=== PATIENT | male | born 1995 | race Two or more races ===

== ENCOUNTER 2024-04-10 22:06 | Emergency (ER) | payer MEDICAID, SELFPAY ==
[2024-04-10 22:07] VITALS: BMI 30.1
--- NOTE | 2024-04-10 22:35 | EKG_ITS ---
[facility] Test Date: 2024-04-10 Pat Name: ALETHEA MCGOVERN Department: Room: - Gender: Male Optical Lab Technician: : 1995 Requested By: Jonas Bacon Order Number: [id number] Reading MD: Jonas Bacon Measurements Intervals [place] Rate: 91 P: 57 W[place]: 147 QRS: 36 QRSD: 87 T: 53 QT: 309 QTc: 380 Interpretive Statements SINUS RHYTHM No previous ECG available for comparison /store/S0/[id number].pdf
[2024-04-10 22:36] VITALS: BP 124/75; PULSE 96; RESP 18; TEMP 37.4; O2SAT 95
--- NOTE | 2024-04-10 22:36 | PD.EDRME ---
Rapid Medical Screening Exam RME Arrival date/time: 04/10/24 22:06 29 year old male present to Ed for c/o of tingling/numbness. I have greeted and performed a focused initial assessment of this patient. A comprehensive ED assessment and evaluation of the patient, analysis of all test results, and completion of the medical decision making process will be conducted by additional ED providers. Chief Complaint: General Adult/Misc Complain Time Seen by Provider: 04/10/24 22:10
[2024-04-10 22:59] LABS: Basophils % (Auto) 0 % (0-2.5); Eosinophils # (Auto) 0.1 Thou/mm3 (0.0-0.5); Eosinophils % (Auto) 1 % (0-10); Immature Granulocytes % (Auto) 1 % (0-0); Immature Granulocytes Auto 0.05 Thou/mm3 (0.00-0.00); Lymphocytes # (Auto) 1.6 Thou/mm3 (1.0-4.8); Lymphocytes % (Auto) 17 % (10-50); Mean Corpuscular HGB Conc 34.1 g/dl (31.0-37.0); Mean Corpuscular Hemoglobin 28.7 pg (25.0-35.0); Mean Corpuscular Volume 84 fL (80-100); Monocytes # (Auto) 0.7 Thou/mm3 (0.0-0.8); Monocytes % (Auto) 7 % (0-12); Neutrophils # (Auto) 7.1 Thou/mm3 (1.8-7.7); Neutrophils % (Auto) 74 % (37-80); Nucleated Red Blood Cell % 0 /100 WBC (0); Platelet Count 213 Thou/mm3 (140-440); RDW Standard Deviation 38.8 fL (35.1-43.9); Red Blood Count 4.88 Miln/mm3 (4.50-5.90); White Blood Count 9.6 Thou/mm3 (3.8-10.6)
[2024-04-10 23:04] LABS: Collection Type, Urine Voided; RBC,Urine 0 /hpf (0-3); WBC,Urine 0 /hpf (0-5)
[2024-04-10 23:16] LABS: Alanine Aminotransferase 42 U/L (10-49); Anion Gap 7 (7-16); Aspartate Amino Transferase 23 U/L (0-34); BUN/Creatinine Ratio 15 Ratio (12-20); Bilirubin,Total 0.3 mg/dL (0.3-1.2); Blood Urea Nitrogen 12 mg/dL (9-23); Carbon Dioxide 26.8 mMol/L (20.0-31.0); Chloride 105 mMol/L (98-107); Creatinine (Component) 0.8 mg/dL (0.6-1.3); Estimated Creatinine Clearance 160.7 mL/min (>60); Glucose 106 mg/dL (74-106); Magnesium 1.9 mg/dL (1.6-2.6); Osmolality,Calculated 277 (275-295); Sodium 139 mMol/L (136-145); Total Protein 7.5 gm/dL (5.7-8.2); Troponin I < 0.002 ng/mL (0.0-0.045); eGFR > 60 See Note
[2024-04-10 23:17] LABS: Albumin, Serum 4.8 gm/dL (3.5-5.0); Albumin/Globulin Ratio 1.8 (1.2-2.2); Alkaline Phosphatase 97 U/L (46-116); Globulin 2.7 gm/dL (2.3-3.5)
[2024-04-10 23:23] LABS: Bilirubin,Urine Negative (Negative); Blood,Urine Negative (Negative); Clarity,Urine Clear (Clear/Hazy); Color,Urine Lt-Yellow (Lt Yel-Yel); Glucose, Urine Negative (Negative); Hyaline Casts,Urine < 1 /hpf (0-1); Ketones,Urine Negative (Negative); Leukocyte Esterase,Urine Negative (Negative); Nitrite,Urine Negative (Negative); Protein,Urine 1+ (Neg - Trace); Specific Gravity,Urine 1.028 (1.001-1.035); Squamous Epithelial Cell,Urine 1 /hpf (0-5); Urobilinogen,Urine Negative mg/dL (0.0-1.0)
--- NOTE | 2024-04-11 01:26 | EDNOTE_ITS ---
<Statement entered by Deena Saab MD - 04/11/24 05:12> As co-signing physician, I was present and available for consult prn. I concur with the plan and care as documented by the midlevel provider. ED General RME/HPI General Chief complaint: General Adult/Misc Complain Stated complaint: NUMBNESS TO HANDS AND FEET Time Seen by Provider: 04/10/24 22:10 Arrival date/time: 04/10/24 22:06 29 year old male present to emergency room with c/o of bilateral hands and feet numbness today. denies any trauma or injury LOCATION: extremities SEVERITY: Symptoms are described as being severe with limitations on activities of daily living CONTEXT: The patient is unable to identify any inciting events. DURATION/TIMING: The symptoms started approximately 1 day ASSOCIATED SYMPTOMS: The patient is unable to identify any other associated symptoms. MODIFYING FACTORS: The patient is unable to identify any alleviating or aggravating symptoms. PERTINENT ROS: no fevers, no cough, no pleuritic pain, no ripping or tearing sensations, denies any lower extremity edema and no unilateral swelling, no chest pain/shortness of breath no nausea,vomiting, diarrhea, no dizziness/headache no rash no loc/syncope episode REVIEW OF SYSTEMS: See History of Present Illness - with the exception of those mentioned in the history of present illness, all other systems reviewed and reported as negative GENERAL: In general the patient is awake, interactive, in an emergency department gurney. HEAD/EYES/EARS/NOSE/THROAT: normo-cephalic, atraumatic, mucus membranes are moist, anicteric, palpebral conjunctiva is pink, trachea is midline. CARDIOVASCULAR: regular rate and regular rhythm, no murmurs, heart sounds are not distant, strong pulses in all four extremities that are equal and symmetric bilateral upper and lower extremities, normal capillary refill. CHEST/PULMONARY: normal chest rise and fall, good air movement, clear to auscultation bilaterally, normal inspiratory to expiratory ratios without evidence of respiratory distress. NECK: No midline/Paraspinal tenderness, no step off ROM/Strenght intact No Kernig and bruzinski sign. No trauma ABDOMEN: soft, not tender, no masses appreciated BACK: normal range of motion without pain. NEUROLOGICAL: cranio-facial features are symmetric, moves all four extremities equally without obvious limitations or weakness. EXTREMITY: no tenderness to palpation over the long bones or large joints of the bilateral upper and lower extremities, no joint swelling, no joint erythema, no signs of trauma, no unilateral leg swelling and no peripheral edema. SKIN: warm, dry, well-perfused, no jaundice, no rash, no telangiectasias or petechia. PSYCH: calm, cooperative, no evidence of psychosis or agitation RME / HPI RME / HPI narrative: 04/10/24 22:06 29 year old male present to Ed for c/o of tingling/numbness. I have greeted and performed a focused initial assessment of this patient. A comprehensive ED assessment and evaluation of the patient, analysis of all test results, and completion of the medical decision making process will be conducted by additional ED providers. Course Course Course Narrative: presents with sensation of tingling to hand/foot? POC glucose, cbc/cmp/trop, ekg Patient?s symptoms and work-up not consistent with a stroke and therefore they will be discharged from the ED. ?Patient has currently been stabilized in the emergency department. Patient?s symptoms not typical for other emergent causes such as dissection, infection, DKA, trauma. Patient will be discharged with strict return precautions and follow up with primary MD within 24 hours for further evaluation.?? Quality Measures none Orders Category Date Time Status EKG (ED ONLY) *Do not use* NOW Care 04/10/24 22:35 Completed EKG (ED Only) Stat Exams 04/10/24 22:35 Draft CBC Stat Lab 04/10/24 22:47 Completed CMP [Comprehensive Metabolic Panel] Stat Lab 04/10/24 22:47 Completed Mag [Magnesium] Stat Lab 04/10/24 22:47 Completed Troponin I Stat Lab 04/10/24 22:47 Completed UA [Urinalysis] Stat Lab 04/10/24 22:52 Completed Vital Signs Vital signs: Vital Signs Temperature 99.4 F 04/10/24 22:36 Pulse Rate 96 04/10/24 22:36 Respiratory Rate 18 04/10/24 22:36 Blood Pressure 124/75 04/10/24 22:36 Pulse Oximetry (%) 95 04/10/24 22:36 Oxygen Delivery Method Room Air 04/10/24 22:36 Procedures -ED EKG Interpretation #1: Date of EK04/11/24 Rate: 91 Interpretation: Reviewed by me EKG Impression: Normal sinus rhythm, No acute ST-T changes, No ectopy, No ischemic changes and Normal QRS MDM Patient data External records reviewed:: None Clinical information provided by:: patient Social determinants that could affect healthcare access:: none Patient has the following chronic illnesses:: none How is presenting disease/condition affected by chronic disease/condition?: no chronic disease Evaluation data The following diagnostics were reviewed and interpreted by me:: lab results and EKG tracing(s) Lab and/or radiology exams considered but not ordered:: none Interpretation Summary: cbc/cmp/trop: wnl ekg Medications Medications considered but not ordered:: none Medication administrations:: none Consultations Consultation(s) initiated? (list below): No Diagnosis Differential Diagnosis ED Complaint MDM: paresthesia , MO/nstemi anemia Most likely diagnosis given after review of the tests above:: pareshesia Admission Indicated Admission indicated?: not indicated Explain why admission is indicated or not indicated:: no Admission Request Was there a request for admission?: No Disposition Plan Disposition Plan: Discharge Discharge Attestation Discharge Attestation: The patient and all family members were given an opportunity to ask questions and understood the discharge instructions. Discharge instructions specifically effects, indications for sooner follow up or return to the emergency department, and the expected course of current diagnosis. Patient condition: Stable Medical Decision Making Differential Diagnosis Differential Diagnosis: paresthesia , MO/nstemi anemia Lab Data 04/10/24 22:47 04/10/24 22:47 Labs: Lab Results 04/10/24 04/10/24 Range/Units 22:47 22:52 WBC 9.6 (3.8-10.6) Thou/mm3 RBC 4.88 (4.50-5.90) Miln/mm3 Hgb 14.0 (13.5-16.0) g/dL Hct 41.0 (41.0-53.0) % MCV 84 (80-100) fL MCH 28.7 (25.0-35.0) pg MCHC 34.1 (31.0-37.0) g/dl RDW Std Deviation 38.8 (35.1-43.9) fL Plt Count 213 (140-440) Thou/mm3 Neut % (Auto) 74 (37-80) % Lymph % (Auto) 17 (10-50) % [place] % (Auto) 7 (0-12) % Eos % (Auto) 1 (0-10) % Baso % (Auto) 0 (0-2.5) % Neut # (Auto) 7.1 (1.8-7.7) Thou/mm3 Lymph # (Auto) 1.6 (1.0-4.8) Thou/mm3 [place] # (Auto) 0.7 (0.0-0.8) Thou/mm3 Eos # (Auto) 0.1 (0.0-0.5) Thou/mm3 Baso # (Auto) 0.0 (0.0-0.2) Thou/mm3 Immature Gran # (Auto) 0.05 H (0.00-0.00) Thou/mm3 Absolute Nucleated RBC 0.00 (0.00-0.00) Thou/mm3 Immature Gran % 1 H (0-0) % Nucleated RBC % 0 (0) /100 WBC Sodium 139 (136-145) mMol/L Potassium 4.0 (3.4-5.1) mMol/L Chloride 105 (98-107) mMol/L Carbon Dioxide 26.8 (20.0-31.0) mMol/L Anion Gap 7 (7-16) BUN 12 (9-23) mg/dL Creatinine 0.8 (0.6-1.3) mg/dL Estim Creat Clear Calc 160.7 (>60) mL/min eGFR > 60 (60 - ) See Note BUN/Creatinine Ratio 15 (12-20) Ratio Glucose 106 (74-106) mg/dL Calculated Osmolality 277 (275-295) Calcium 10.0 (8.3-10.6) mg/dL Corrected Calcium 10.0 (8.5-10.1) mg/dL Magnesium 1.9 (1.6-2.6) mg/dL Total Bilirubin 0.3 (0.3-1.2) mg/dL AST 23 (0-34) U/L ALT 42 (10-49) U/L Alkaline Phosphatase 97 (46-116) U/L Troponin I < 0.002 (0.0-0.045) ng/mL Total Protein 7.5 (5.7-8.2) gm/dL Albumin 4.8 (3.5-5.0) gm/dL Globulin 2.7 (2.3-3.5) gm/dL Albumin/Globulin Ratio 1.8 (1.2-2.2) Ur Collection Type Voided Urine Color Lt-Yellow (Lt Yel-Yel) Urine Clarity Clear (Clear/Hazy) Urine pH 6.0 (5.0-7.0) Ur Specific [place] 1.028 (1.001-1.035) Urine Protein 1+ A (Neg - Trace) Urine Glucose (UA) Negative (Negative) Urine Ketones Negative (Negative) Urine Blood Negative (Negative) Urine Nitrite Negative (Negative) Urine Bilirubin Negative (Negative) Urine Urobilinogen (Auto) Negative (0.0-1.0) mg/dL Ur Leukocyte Esterase Negative (Negative) Urine RBC 0 (0-3) /hpf Urine WBC 0 (0-5) /hpf Ur Squamous Epith Cells 1 (0-5) /hpf Urine Bacteria None (None) Hyaline Casts < 1 (0-1) /hpf Discharge Plan Plan Patient Disposition: HOME (Self Care) Health Concerns: Follow with PMD as directed Return to ED if sx worsen Problem List Clinical Impression: Paresthesia Patient/Caregiver Discharge Instructions Education Materials: ED Paraesthesias Print Language: [place] Stand Alone Forms: Jaylyn Award Info., Patient Portal Info Letter
[2024-04-11 01:33] VITALS: RESP 18
== END 2024-04-11 01:33 | disposition home or self-care (01) ==
LOC: SERX 04-11 02:04
PROVIDERS: Physician Assistant; Emergency Provider Emergency Medicine
DX: R20.2 Paresthesia of skin (principal)
CPT/HCPCS: 36415; 80053; 81001; 83735; 84484; 85025; 93005; 99283

== ENCOUNTER 2024-05-04 07:43 | Emergency (ER) | payer MEDICAID, SELFPAY ==
[2024-05-04 07:56] VITALS: BP 130/83; PULSE 76; RESP 19; TEMP 37.2; O2SAT 95; BMI 27.8
[2024-05-04] MEDS: LOPERAMIDE 2 MG CAPSULE 4 MG PO (08:31)
[2024-05-04] MEDS: METOCLOPRAMIDE INJ 5 MG/ML VIAL 2 ML 10 MG IM (08:32)
--- NOTE | 2024-05-04 08:34 | PC.NURSE ---
pt started hyperventilating after getting shot of reglan and immodium pills. Bernardo espitia n/p informed and will go see pt
--- NOTE | 2024-05-04 08:39 | EDNOTE_ITS ---
<Statement entered by Deena Saab MD - 05/05/24 11:47> As co-signing physician, I was present and available for consult prn. I concur with the plan and care as documented by the midlevel provider. Nausea/Vomit./Diarrhea-RME/HPI General Chief complaint: Flu Like Symptoms Stated complaint: FEVER, N/V X DAYS Time Seen by Provider: 05/04/24 07:45 Arrival date/time: 05/04/24 07:43 29-year-old male with no significant medical problems presents the emergency department complaint of nausea, vomiting, diarrhea and generalized bodyaches. Limitations: no limitations Related Data Previous Rx's ?Medication ?Instructions ?Recorded ibuprofen 800 mg tablet 800 mg PO TID PRN pain #30 tabs 05/04/24 loperamide 2 mg capsule (Imodium 2 mg PO Q6H PRN loose stool #14 05/04/24 A-D) caps ondansetron 4 mg disintegrating 4 mg PO Q8H PRN nausea and 05/04/24 tablet vomiting #10 tabs Allergies Allergy/AdvReac Type Severity Reaction Status Date / Time No Known Allergies Allergy Verified 05/04/24 07:45 Review of Systems Review of Systems Systems Reviewed: All systems reviewed, normal except as documented Constitutional Constitutional: Reports system reviewed and no additional complaints, except as documented, Reports body ache(s), Reports chills, Reports fever(s) and Denies headache(s) Eyes Eyes: Reports system reviewed and no additional complaints, except as documented and Denies blurry vision ENT Ears, Nose, Mouth, and Throat: Reports system reviewed and no additional complaints, except as documented, Denies headache(s), Reports nasal congestion and Reports nasal discharge Cardiovascular Cardiovascular: Reports system reviewed and no additional complaints, except as documented, Denies chest pain and Denies dyspnea Respiratory Respiratory: Reports system reviewed and no additional complaints, except as documented, Denies chest congestion, Denies cough and Denies dyspnea Gastrointestinal Gastrointestinal: Reports system reviewed and no additional complaints, except as documented, Denies abdominal pain, Reports loose stools, Reports nausea and Reports vomiting Integumentary/Breasts Skin/Breast: Reports system reviewed and no additional complaints, except as documented and Denies rash Neurologic Neurologic: Reports system reviewed and no additional complaints, except as documented, Reports as per HPI and Denies headache(s) Past Medical History Social History SMOKING STATUS: Never smoker ED Exam General Limitations: Present no limitations General appearance: Present alert and in no apparent distress Head Head exam: Present atraumatic Eye Eye exam: Present normal appearance, PERRL and EOMI ENT ENT exam: Present normal exam, normal oropharynx and mucous membranes moist Neck Neck exam: Present normal inspection, full ROM and trachea midline Chest Chest inspection: Present normal inspection and symmetric chest wall rise Respiratory Respiratory exam: Present normal lung sounds bilaterally; Absent respiratory distress Cardiovascular Cardiovascular exam: Present regular rate, normal rhythm and normal heart sounds Abdominal Exam Abdominal exam: Present soft and normal bowel sounds; Absent distention, tenderness, guarding, rebound or rigidity Extremities Exam Extremities exam: Present normal inspection and full ROM Back Exam Back exam: Present normal inspection and full ROM Neurological Exam Neurological exam: Present alert, oriented X3 and CN II-XII intact Psychiatric Psychiatric exam: Present normal affect and normal mood Skin Skin exam: Present warm, dry, intact and normal color Course Quality Measures none Orders Category Date Time Status Bedside COVID-19 Antigen Test NOW Care 05/04/24 07:55 Completed Bedside Influenza A&B Antigen Test NOW Care 05/04/24 07:55 Completed Loperamide [Imodium] Med 05/04/24 08:17 Discontinued 4 mg PO X1 ONE Metoclopramide Inj [Reglan Inj] Med 05/04/24 08:17 Discontinued 10 mg IM X1 ONE Vital Signs Vital signs: Vital Signs Temperature 98.9 F 05/04/24 07:56 Pulse Rate 76 05/04/24 07:56 Respiratory Rate 19 05/04/24 07:56 Blood Pressure 130/83 05/04/24 07:56 Pulse Oximetry (%) 95 05/04/24 07:56 Oxygen Delivery Method Room Air 05/04/24 07:56 O2 saturation 95% room air within normal limits Nausea/Vomiting/Diarrhea MDM Narrative MDM Narrative:: 29-year-old male with no significant medical problems presents the emergency department complaint of nausea, vomiting, diarrhea and generalized bodyaches. On exam patient appears ill but nontoxic Symptoms highly consistent with viral illness I suspect patient has the flu Patient was checked for the flu which came back positive Patient given Reglan and Imodium here and discharged home with Imodium ibuprofen and Zofran Patient discharged home in no distress to follow-up with primary care doctor in the next 24 to 48 hours and for any worsening symptoms to return to the ER immediately Patient data External records reviewed:: [facility] previous records Clinical information provided by:: patient Social determinants that could affect healthcare access:: none Patient has the following chronic illnesses:: None How is presenting disease/condition affected by chronic disease/condition?: no chronic disease Evaluation data The following diagnostics were reviewed and interpreted by me:: lab results Lab and/or radiology exams considered but not ordered:: Influenza obtained Interpretation Summary: Reviewed by me Medications / Prescriptions Medications / Prescriptions considered but not ordered:: Given Medication administrations:: Medication Administration History Discontinued Medications Loperamide HCl (Loperamide 2 Mg Capsule) 4 mg PO X1 ONE Stop: 05/04/24 08:18 Last Admin: 05/04/24 08:31 Dose: 4 mg Documented By: [facility] Metoclopramide HCl (Metoclopramide Inj 5 Mg/Ml Vial 2 Ml) 10 mg IM X1 ONE; Protocol Stop: 05/04/24 08:18 Last Admin: 05/04/24 08:32 Dose: 10 mg Documented By: [facility] Given Consultations Consultation(s) initiated? (list below): No Diagnosis Nausea Differential Diagnosis: traveler's diarrhea, food poisoning and gastroenteritis Most likely diagnosis given after review of the tests above:: Nausea vomiting Admission Indicated Admission indicated?: not indicated Admission Request Was there a request for admission?: No Disposition Plan Disposition Plan: Discharge Discharge Attestation Discharge Attestation: The patient and all family members were given an opportunity to ask questions and understood the discharge instructions. Discharge instructions specifically effects, indications for sooner follow up or return to the emergency department, and the expected course of current diagnosis. Patient condition: Stable Discharge Plan Plan Patient Disposition: HOME (Self Care) Disposition Comment: Stable Prescriptions/Referrals Prescriptions/Med Rec: New loperamide [Imodium A-D] 2 mg capsule 2 mg PO Q6H PRN (Reason: loose stool) Qty: 14 0RF ibuprofen 800 mg tablet 800 mg PO TID PRN (Reason: pain) Qty: 30 0RF ondansetron 4 mg tablet,disintegrating 4 mg PO Q8H PRN (Reason: nausea and vomiting) Qty: 10 0RF Problem List Clinical Impression: Influenza, Vomiting and diarrhea Patient/Caregiver Discharge Instructions Education Materials: ED Influenza (Adult) Additional Instructions: Please follow up with your primary care doctor in the next 24-48hrs for any worsening symptoms return here immediately Print Language: Chadian Stand Alone Forms: Jaylyn Award Info., Patient Portal Info Letter PA/DAIRY WORKER Supervising Physician PA/DAIRY WORKER Supervising Physician: Dr. saab
--- NOTE | 2024-05-04 09:47 | PC.NURSE ---
Patient feeling better, calm and denies pain at this time. Per Gustavo RESOURCE CONSERVATIONIST, ok to d/c.
== END 2024-05-04 09:48 | disposition home or self-care (01) ==
LOC: SERX 10:19
PROVIDERS: Emergency Provider Emergency Medicine
DX: J11.1 Influenza due to unidentified influenza virus with other respiratory manifestations (principal)
CPT/HCPCS: 87400; 87811; 96372; 99283; J2765; A9270